=== PATIENT | female | born 1980 | race Caucasian/White ===

== ENCOUNTER 2021-02-15 07:35 | Outpatient (CLI) | payer BC, SELFPAY ==
[2021-02-15 08:36] LABS: Estimated Glomerular Filt Rate > 60
== END 2021-02-15 07:36 | disposition home or self-care (01) ==
LOC: ANHIMG 07:39
PROVIDERS: PCP Internal Medicine; Visit Provider Obstetrics & Gynecology
DX: R19.00 Intra-abdominal and pelvic swelling, mass and lump, unspecified site (principal)
CPT/HCPCS: 99199; 36415

== ENCOUNTER 2021-03-02 14:57 | Outpatient (CLI) | payer BC, SELFPAY ==
--- NOTE | ~2021-03-02 | MM_ITS ---
EXAMINATION: MM screening eddie BI w kristopher HISTORY: . TECHNIQUE: Craniocaudal and mediolateral oblique 3-D tomosynthesis images were obtained and synthetic 2-D images were generated. CAD analysis was submitted and interpreted. COMPARISON: No prior mammogram is available for comparison at this institution. BREAST PARENCHYMAL COMPOSITION: The breasts are almost entirely fatty. FINDINGS: There is no evidence of suspicious mass, calcification, or architectural distortion to sugg est malignancy in either breast. There has been no suspicious interval change. IMPRESSION: 1. No mammographic evidence of malignancy. 2. Recommend routine screening mammography in one year. BI-RADS Category 1: Negative Reviewed, dictated and finalized at location A.
== END 2021-03-02 14:58 | disposition home or self-care (01) ==
LOC: ANHIMG 14:59
PROVIDERS: PCP Internal Medicine; Visit Provider Obstetrics & Gynecology
DX: Z12.31 Encounter for screening mammogram for malignant neoplasm of breast (principal)
CPT/HCPCS: 77063; 77067

== ENCOUNTER 2022-07-13 07:27 | Outpatient (CLI) | payer BC, SELFPAY ==
--- NOTE | ~2022-07-13 | MM_ITS ---
EXAMINATION: MM screening [facility] BI w kristopher HISTORY: Screening mammogram TECHNIQUE: Craniocaudal and mediolateral oblique 3-D tomosynthesis images were obtained and synthetic 2-D images were generated. CAD analysis was submitted and interpreted. COMPARISON: 03/02/2021 BREAST PARENCHYMAL COMPOSITION: There are scattered areas of fibroglandular density. FINDINGS: RIGHT BREAST: There is no suspicious mass, calcification, or architectural distortion to suggest adam gnancy. There has been no significant interval change. LEFT BREAST: An asymmetry is present in the middle third of the upper breast approximately 9 cm from the nipple on the craniocaudal. There is also a subareolar asymmetry on the craniocaudal view. IMPRESSION: 1. Left breast asymmetries. 2. Additional mammographic views and possible breast ultrasound are recommended. BI-RADS Category 0: Incomplete: Needs additional imaging evaluation. Reviewed, dictated and finalized at location A. IMPRESSION: 1. Left breast asymmetries. 2. Additional mammographic views and possible breast ultrasound are recommended . BI-RADS Category 0: Incomplete: Needs additional imaging evaluation.
== END 2022-07-13 07:28 | disposition home or self-care (01) ==
PROVIDERS: PCP Internal Medicine; Visit Provider Obstetrics & Gynecology
DX: Z12.31 Encounter for screening mammogram for malignant neoplasm of breast (principal); R92.8 Other abnormal and inconclusive findings on diagnostic imaging of breast
CPT/HCPCS: 77063; 77067

== ENCOUNTER 2022-07-22 11:21 | Outpatient (CLI) | payer BC, SELFPAY ==
--- NOTE | ~2022-07-22 | MM_ITS ---
EXAMINATION: MM diagnostic eddie LT w kristopher HISTORY: Follow-up left breast asymmetries TECHNIQUE: Additional 3-D tomosynthesis images of the left breast were performed and synthetic 2-D im ages were generated. CAD analysis was submitted and interpreted. COMPARISON: Comparison to multiple prior studies sequentially, with oldest reviewed study dated 03/02. BREAST PARENCHYMAL COMPOSITION: Breast composed of scattered areas of fibroglandular density FINDINGS: There are no suspicious masses, calcifications or architectural distortion in the left chato st to suggest malignancy. Areas of asymmetry are less apparent with spot compression views, compatibl e with superimposed fibroglandular tissue. IMPRESSION: 1. No mammographic evidence for malignancy in the left breast. 2. Routine yearly screening mammogram and regular clinical breast examination are recommended. BI-RADS Category 1: Negative Reviewed, dictated and finalized at location A. IMPRESSION: 1. No mammographic evidence for malignancy in the left breast. 2. Routine yearly screening mammogram and regular clinical breast examination a re recommended. BI-RADS Category 1: Negative
== END 2022-07-22 11:22 | disposition home or self-care (01) ==
LOC: ANHIMG 11:23
PROVIDERS: PCP Internal Medicine; Visit Provider Obstetrics & Gynecology
DX: R92.8 Other abnormal and inconclusive findings on diagnostic imaging of breast (principal)
CPT/HCPCS: 77061; 77065; G0279

== ENCOUNTER 2022-11-15 09:55 | Outpatient (CLI) | payer BC, SELFPAY ==
--- NOTE | ~2022-11-15 | US_ITS ---
Pelvic ultrasound. Clinical History: Hypertrophy of uterus Technique: Realtime transabdominal and transvaginal scanning of the pelvis was performed. Color flow Doppler and Doppler spectral analysis were performed. Findings: The uterus is anteverted. There is a dominant fibroid towards the fundus measuring 11.1 x 9 .2 x 12.9 cm. The endometrial stripe is obscured due to the large fibroid present. Neither ovary seen. No other adnexal mass seen. There is no evidence of free fluid in the cul de sac. Impression: Dominant fundal fibroid measuring 11.1 x 9.2 x 12.9 cm. Reviewed, dictated and finalized at location . E WASHER Impression: Dominant fundal fibroid measuring 11.1 x 9.2 x 12.9 cm.
== END 2022-11-15 09:56 | disposition home or self-care (01) ==
PROVIDERS: PCP Internal Medicine; Visit Provider Obstetrics & Gynecology
DX: N85.2 Hypertrophy of uterus (principal); D25.9 Leiomyoma of uterus, unspecified
CPT/HCPCS: 76830; 76856

== ENCOUNTER 2023-04-09 12:45 | Emergency (ER) | payer BC, SELFPAY ==
[2023-04-09 12:55] VITALS: BP 144/80; PULSE 72; RESP 16; TEMP 37.7; O2SAT 98
--- NOTE | 2023-04-09 13:08 | ED.URI ---
HPI - URI/Sore Throat General Chief Complaint: Upper Respiratory Infection Stated Complaint: throat problem Time Seen by Provider: 04/09/23 13:08 Source: patient Mode of arrival: ambulatory Limitations: no limitations History of Present Illness HPI Narrative: 43-year-old female presents with complaint of sinus congestion, pressure, postnasal drainage, hoarse voice, ear pressure, headaches, fatigue for the past week. Afebrile. Taking Zyrtec daily. Has tried several amqd-lgm-thzpzde medications to treat sinuses without relief of symptoms. Reports hoarseness when coughing. Denies chest pain and shortness of breath. No nausea vomiting diarrhea. All systems reviewed and negative except as noted above. Related Data Home Medications Medication Instructions Recorded Confirmed cetirizine 10 mg capsule (Zyrtec) 10 mg PO DAILY 01/29/21 04/09/23 cholecalciferol (vitamin D3) 50 150 mcg PO DAILY 01/29/21 04/09/23 mcg (2,000 unit) capsule magnesium citrate 125 mg capsule 125 mg PO BID 01/29/21 04/09/23 Allergies Allergy/AdvReac Type Severity Reaction Status Date / Time codeine Allergy Unknown Unknown Verified 04/09/23 13:00 latex Allergy Unknown unknown Verified 04/09/23 13:00 Penicillins Allergy Unknown Unknown Verified 04/09/23 13:00 Review of Systems Review of Systems: CONSTITUTIONAL: Denies fever, chills, or sweats. EYES: Denies visual changes, redness, or discharge. ENT: Reports rhinorrhea, congestion, sore throat, postnasal drainage, sinus and ear pressure. CARDIOVASCULAR: Denies chest pain, palpitations, or edema. RESPIRATORY: Reports cough. Denies dyspnea. GASTROINTESTINAL: Denies abdominal pain, nausea, vomiting, or diarrhea. GENITOURINARY: Denies dysuria or hematuria. SKIN: Denies rash or itching. MUSCULOSKELETAL: Denies back pain, joint pain, or myalgia. NEUROLOGIC: Denies headache, numbness, or weakness. PSYCHIATRIC: Denies anxiety or depression. All other systems reviewed are negative, except as documented in HPI. [facility] Past Medical History Medical History x1 Acid reflux Surgical History Surgical History History of cholecystectomy History of surgery of uterus fibroid embolism Family History Family History Grandparent Family history of malignant neoplasm of cervix Social History Social History Smoking status: Current every day smoker Tobacco type: cigarettes Alcohol intake: current Substance use: unknown Comments At time of signature, agree with nursing past medical, surgical, social and family history. There is no relevant family history pertinent to the presenting complaint. Exam Narrative: GENERAL: This is a well-nourished, well-developed patient, in no apparent distress. HEAD: normocephalic, atraumatic. EYES: PERRL. Sclera clear/white. Vision is grossly intact. EARS: External ears normal, auditory canals clear and without drainage, Fluid to bilateral TMs without erythema. NOSE: External nose normal with purulent nasal drainage, erythema and swelling to both nares. Bilateral maxillary and sinus tenderness on palpation. THROAT: Mucous membranes moist, Erythema and swelling to posterior pharynx with postnasal drainage. NECK: Neck supple, non-tender without lymphadenopathy, masses or thyromegaly. CARDIOVASCULAR: Regular rate and rhythm without murmurs, gallops, or rubs. RESPIRATORY: Clear to auscultation. Breath sounds equal bilaterally. No wheezes, rales, or rhonchi. SKIN: warm, Dry, intact with no suspicious lesions or rash, good texture and turgor. NEURO: awake, alert, and oriented to person, place and time. There were no obvious focal neurologic abnormalities. EXTREMITIES: No joint tenderness, effusion, or edema noted. Cours
== END 2023-04-09 13:21 | disposition home or self-care (01) ==
PROVIDERS: Emergency Provider Nurse Practitioner Family
DX: J01.90 Acute sinusitis, unspecified (principal); K21.9 Gastro-esophageal reflux disease without esophagitis; F17.210 Nicotine dependence, cigarettes, uncomplicated
CPT/HCPCS: 99213; G0463

== ENCOUNTER → 2023-04-18 08:09 | Outpatient (CLI) | payer BC, SELFPAY ==
--- NOTE | ~2023-04-18 | US_ITS ---
EXAMINATION: US pelvic complete w TV DATE: 04/18/2023 08:47 INDICATION: Leiomyoma of uterus TECHNIQUE: Multiple transabdominal and endovaginal sonographic images of the pelvis were obtained. COMPARISON: 11/15/2022, 11/17/2018 FINDINGS: The uterus measures 11.7 x 5.5 x 6.6 cm. There is an approximately 10.3 x 9.1 x 6.1 cm mass situated posterior to the uterus with the appearance of a large fibroid. The endometrial complex nat sures 7 mm. The left ovary is not visualized however no left adnexal abnormality is seen. The right o vary measures 2.9 x 4.5 x 6.1 cm and contains cysts measuring up to 3.1 cm. There is normal vascular flow in the right ovary. There is no free fluid in the pelvis. IMPRESSION: 1. Pelvic mass without significant change, likely large uterine fibroid. Reviewed, dictated and finalized at location B.
== END ==
PROVIDERS: PCP Obstetrics & Gynecology; Visit Provider Obstetrics & Gynecology
DX: D25.9 Leiomyoma of uterus, unspecified (principal)
CPT/HCPCS: 76830; 76856

== ENCOUNTER 2025-03-06 13:01 | Outpatient (CLI) | payer BC, SELFPAY ==
--- NOTE | ~2025-03-06 | XR_ITS ---
EXAMINATION: SCOLIOSIS DATE: 03/07/2025 9:59 CDT INDICATION: Segmental and somatic dysfunction of the thoracic and lumbar spine TECHNIQUE: Standing AP and lateral views of the thoracolumbar spine FINDINGS: There are 12 rib bearing thoracic vertebral bodies and 5 non-rib bearing lumbar type verteb ral bodies. There is no listhesis, compression deformity or vertebral body anomalies. There is mild S shaped scoliosis of the thoracic and lumbar spine. There is dextrocurvature of the lower thoracic spine centered at T12 measuring 6 degrees. There is levoscoliosis of the lumbar spine centered at L2- 3 measuring 8 degrees. There are cholecystectomy clips. There is reversal of cervical lordosis, possi yung due to muscle spasm. IMPRESSION: 1. Mild S-shaped scoliosis of the thoracic and lumbar spine. 2. No vertebral body anomalies. Reviewed, dictated and finalized at location A.
== END 2025-03-06 13:02 | disposition home or self-care (01) ==
DX: M51.34 Other intervertebral disc degeneration, thoracic region (principal); M51.360 Other intervertebral disc degeneration, lumbar region with discogenic back pain only; M99.02 Segmental and somatic dysfunction of thoracic region; M99.03 Segmental and somatic dysfunction of lumbar region; M99.01 Segmental and somatic dysfunction of cervical region; M50.30 Other cervical disc degeneration, unspecified cervical region
CPT/HCPCS: 72082

== ENCOUNTER 2025-03-27 01:09 | Day surgery (SDC) | payer BC, SELFPAY ==
[2025-01-01 10:58] VITALS: BMI 40.1
[2025-03-13 11:24] VITALS: BMI 41.6
--- OUTSIDE RECORDS SUMMARY | 2025-03-27 01:18 | XMS_ITS | Referral Summary ---
Author Organization [facility] Address [address] [place] [address] Care Team Providers Care Welding Supervisor Name Role Phone Margie Kruse DNP Primary Care Provi christina Encounters Date Type Department Care Team Description 01/20/2025 Results Follow-Up [address] [place] [id number] Margie Kruse DNP Throat culture Throat 01/18/[address] [place] [id number] Margie Kruse DNP disability paperwork 01/14/2025 4:24 PM CDT - 01/14/2025 11:59 PM CDT Hospital Encounter [facility] [place] [address] Pharyngeal abscess Discharge Disposition: Discharge to home or self care 01/14/2025 3:00 PM CDT Office Visit [address] [place] [address] Margie Kruse DNP Pharyngeal abscess (Primary Dx); Acute sinusitis, recurrence not specified, unspecified location; Bronchitis; Environmental and seasonal allergies; Morbid obesity with BMI of 45.0-49.9, adult (HCC) 01/14/[address] [place] [address] Aixa, Margie Aletha, DNP Appointment Request from Last 3 Months Allergies Active Allergy Reactions Criticality Noted Date Comments Codeine Codeine Vomiting Medium 03/19/2021 Latex Itching,Rash Medium 03/19/2021 Levofloxacin Hives,Itching,Rash,Redness Medium 023 Penicillins Penicillins Vomiting Medium 03/19/2021 Medications semaglutide (OZEMPIC SUBQ) Inject under the skin Active vitamin D3-vitamin K2 25 mcg (1,000 unit)-90 mcg tablet,disinteg rating Take by mouth Active albuterol HFA (PROVENTIL HFA,VENTOLIN HFA,PROAIR HFA) 90 mcg/actuation inhaler TAKE 2 APPLICATION (INHALATION) EVERY 4 HOURS FOR 15 DAYS 5 Active benzonatate (TESSALON) 200 mg capsule TAKE 1 CAPSULE BY MOUTH THREE TIMES A DAY FOR 10 DAYS 5 Active doxycycline hyclate 100 mg capsule TAKE 1 CAPSULE BY MOUTH TWICE A DAY FOR 10 DAYS 5 Active predniSONE (DELTASONE) 20 mg tablet TAKE 3 TABLETS BY MOUTH ONCE DAILY FOR 3 DAYS, 2 TABS DAILY FOR 2 DAYS, 1 TAB DAILY FOR 2 DAYS 5 Active montelukast (SINGULAIR) 10 mg tablet Take 1 tablet (10 mg total) by mouth nightly 90 tablet 1 5 01/15/20 26 Active cetirizine (ZyrTEC) 10 mg tablet Take 1 tablet (10 mg total) by mouth daily as needed for rhinitis 90 tablet 3 5 01/15/20 26 Active fluticasone propionate (FLONASE) 50 mcg/actuation nasal spray Administer 2 sprays into each nostril daily 3 each 3 5 Active Active Problems Problem Noted Date Diagnosed Date Pharyngeal abscess 01/14/2025 Assessment & Plan (01/14/2025 3:57 PM CDT): Throat culture collected Refer to ENT Bronchitis 01/14/2025 Assessment & Plan (01/14/2025 3:57 PM CDT): Continue current therapy regimen Sinusitis, acute 01/14/2025 Assessment & Plan (01/14/2025 3:57 PM CDT): Continue current therapy regimen Take pseudoephedrine 240 mg daily for 10 days as prescribed Start montelukast 10 mg daily as prescribed Start cetirizine 10 mg daily as prescribed Use Flonase daily as prescribed Follow up as needed Environmental and seasonal allergies 01/14/2025 Assessment & Plan (01/14/2025 3:59 PM CDT): Start montelukast 10 mg daily as prescribed Start cetirizine 10 mg daily as prescribed Use Flonase daily as prescribed Follow up in one-month Morbid obesity with BMI of 45.0-49.9, adult 04/2025 Assessment & Plan (01/14/2025 3:57 PM CDT): Your BMI is elevated. Try to cut back on calories. Most people should eat between 9182-5370 calories to lose weight. Goal BMI is less than 30. A healthy BMI is considered between 19-25. Decrease your carbohydrate intake to less than 150 grams per day if possible and increase protein to help with hunger. Increase activity to 30 min 4-5 days a week of moderate aerobic activity and add strength training 2 times weekly, as tolerated. Consider using [employer] keaton to track diet and exercise habits daily. Consider trying Weight Watcher program to make dietary changes. Visit www.dietaryguidelines.gov, www.myplate.gov, or www.health.gov for more dietary information and tips. Visit www.[employer] or www.[employer] for online seo manager covered by health insurance. If you need further help with weight loss please let me know. I would be happy to help. Start with asking your insurance company what medications they provide coverage for. Check with your insurance to see if they authorize dietitian services with www.[employer] Some medications to ask about include phentermine, Qsymia, Contrave, Xenical, Wegovy, Zepbound. Annual physical exam 06/18/2024 Assessment & Plan (06/18/2024 2:55 PM CDT): Labs ordered Recommend drinking at least 64 oz of water daily Recommend at least 26g fiber daily Recommend at least 150 min of exercise weekly as tolerated Recommend taking daily multivitamin Continue eating a healthy well-balanced diet. Limit processed foods like white starches, fast food, sweets and soda. Increase your vegetable intake and limit red meat. Wear your seatbelt at all times. No texting and driving. Continue to manage your stress in a healthy manner. Follow-up 1 year for annual physical. Fibroids 04/29/2021 Class 2 obesity with body ma ss index (BMI) of 39.0 to 39.9 in adult 01/18/2017 Overview (06/10/2023): Last Assessment & Plan: Has been having success with weight loss. We spent 15 mins discussing healthy dietary and lifestyle changes. Discussed keeping weight loss slow and steady and making overall healthy changes and decisions. Encouraged to con't diet and to increase her physical exercises Assessment & Plan (06/18/2024 2:58 PM CDT): Continue with semaglutide as managed by [facility] Most people should eat between 9184-5925 calories to lose weight. Goal BMI is less than 30. A healthy BMI is considered between 19-25. Decrease your carbohydrate intake to less than 150 grams per day if possible and increase protein to help with hunger. Increase activity to 30 min 4-5 days a week of moderate aerobic activity and add strength training 2 times weekly, as tolerated. Consider using [employer] keaton to track diet and exercise habits daily. Consider trying Weight Watcher program to make dietary changes. Visit www.dietaryguidelines.gov, www.myplate.gov, or www.health.gov for more dietary information and tips. Immunizations Immunization Administration Dates Next Due Influenza, Quadrivalent, Spl it, Preservative Free, Intramuscular 08/29/2017 Influenza, Unspecified 07/10/2023(Deferred: Syeda ent Refused) Tdap 08/29/2017 Social History Tobacco Use Types Packs/Day Years Used Date Smoking Tobacco: Some Days Cigarettes Smokeless Tobacco: Never Tobacco Cessation:Ready to Q uit: Not Asked; Counseling Given: Not Answered Alcohol Use Standard Drinks/Week Comments Yes 0 (1 standard drink = 0.6 oz pur e alcohol) once every few months AUDIT-C Answer Date Recorded Q1: How often do you have a drink containing alc ohol? 2-4 times a month 06/18/2024 Q2: How many drinks containi ng alcohol do you have on a typical day when you are drinking? 1 or 2 06/18/2024 Q3: How often do you have si x or more drinks on one occasion? Never 06/18/2024 PHQ-2 Answer Date Recorded PHQ-2 Total Score (If total score is 3 or more points, staff should administer the PHQ-9) 0 06/18/2024 Personal Safety Answer Date Recorded Have you ever been in or are you currently in a harmful physical or emotional relationship or is someone making you feel afraid or unsafe? 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 Gender Identity Not on file Sexual Orientation Not on file Last Filed Vital Signs Vital Sign Reading Time Taken Comments Blood Pressure 118/70 01/14/2025 2:57 PM CDT Pulse 80 01/14/2025 2:57 PM CDT Temperature 36.6 C (97.9 F) 06/18/2024 2:11 PM CDT Respiratory Rate 18 01/14/2025 2:57 PM CDT Oxygen Saturation 98% 01/14/2025 2:57 PM CDT Inhaled Oxygen Concentration - - Weight 139.5 kg (307 lb 9.6 oz) 01/14/2025 2:57 PM CDT Height 175.3 cm (5' 9) 01/14/2025 2:57 PM CDT Body Mass Index 45.42 01/14/2025 2:57 PM CDT Plan of Treatment Not on file Medical Devices Implanted Type Area Automotive Paint Technician Device Identifier Shelf Expiration Date Model / Serial / Lot [employer] S620 Embosphere Saline Syringe Compressible Nonaggregate Highly Target - [id number] Implanted:Qty: 1 on 04/29/2021 at [facility] [employer] 10/03/2023 S620GH / / [id number] [employer] S620 Embosphere Saline Syringe Compressible Nonaggregate Highly Target - [id number] Implanted:Qty: 1 on 04/29/2021 at [facility] [employer] 10/03/2023 S620GH / / [id number] [facility] [employer] S620 Embosphere Saline Syringe Compressible Nonaggregate Highly Target - [id number] Implanted:Qty: 1 on 04/29/2021 at [facility] [employer] 10/03/2023 S620GH / / [id number] [facility] [employer] S620gh Embosphere Saline Syringe Compressible Nonaggregate High[employer] - [id number] Implanted:Qty: 1 on 04/29/2021 at [facility] [employer] 08/09/2023 S620GH / / [id number] [facility] [employer] S620 Embosphere Saline Syringe Compressible Nonaggregate High[employer] Target - [id number] Implanted:Qty: 1 on 04/29/2021 at [facility] [employer] 12/07/2022 S620GH / / [id number] [facility] [employer] S620 Embosphere Saline Syringe Compressible Nonaggregate High[employer] - [id number] Implanted:Qty: 1 on 04/29/2021 at [facility] [employer] 12/07/2022 S620GH / / [id number] [facility] [employer] S620 Embosphere Saline Syringe Compressible Nonaggregate High[employer] - [id number] Implanted:Qty: 1 on 04/29/2021 at [facility] [employer] 10/03/2023 S620GH / / [id number] [facility] [employer] S620gh Embosphere Saline Syringe Compressible Nonaggregate High[employer] Target - [id number] Implanted:Qty: 1 on 04/29/2021 at [facility] [employer] 06/09/2023 S620GH / / [id number] Procedures Procedure Name Priority Date/Time Associated Diagnosis Comments THROAT CULTURE Routine 01/14/2025 3:18 PM CDT Pharyngeal abscess from Last 3 Months Results * Throat culture Throat (01/14/2025 3:18 PM CDT) Report Final Report: No growth of pathogens. Comment:Testing performed by : [facility] [address] [facility], [place]., [address] Throat 01/14/2025 3:18 PM CDT 01/14/2025 9:42 PM CDT Yanelis RM - 01/15/2025 5:35 PM CDT Testing performed by [facility] ([phone]). Margie Kruse [facility] MI[facility] - GENERAL ORDERABLES Final Result [facility] [address] [facility] [place] [address] from Last 3 Months Insurance [employer] [place] [employer] [address] Advance Directives For more information, please contact: [phone] * Full Code (Latest Code Status on File) Date Activated Date Inactivated Comments 07/20/2023 7:05 AM 07/21/2023 4:53 AM * Full Code Date Activated Date Inactivated Comments 04/29/2021 1:03 PM 10/14/2021 4:41 AM Care Teams Welding Supervisor Relationship Specialty Start Date End Date Margie Kruse DNP [address] [place] [address] PCP - General Family Medicine 06/20/24
--- OUTSIDE RECORDS SUMMARY | 2025-03-27 01:18 | XMS_ITS | Encounter Summary ---
Author Organization [facility] Healthcare Address [address] [place] [address] Care Team Providers Care Farm Hand Name Role Phone America Bishop MD Primary Care Provider [phone] Margie Kruse DNP Primary Care Provi christina Encounter Details Date Type Department Care Team (Late st Contact Info) Description 04/29/2021 Telephone [facility] - Interventional Radiology [facility] [place] [address] Naheed Russo RN Social History Tobacco Use Types Packs/Day Years Used Date Smoking Tobacco: Never Assessed Comments Unknown Sex and Gender Information Value Date Recorded Sex Assigned at Not on file 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
--- OUTSIDE RECORDS SUMMARY | 2025-03-27 01:18 | XMS_ITS | Clinical Summary ---
Author Organization [facility] Address [address] [place] [address] Care Team Providers Care Business Administrator Name Role Phone Margie Kruse [facility] Primary Care Provi christina Allergies Active Allergy Reactions Criticality Noted Date [...] on calories. Most people should eat between 0772-4535 calories to lose weight. Goal BMI is less than 30. A healthy BMI is considered between 19-25. Decrease your carbohydrate intake to less than 150 grams per day if possible and increase protein to help with hunger. Increase activity to 30 min 4-5 days a week of moderate aerobic activity and add strength training 2 times weekly, as tolerated. Consider using Zoomorama keaton to track diet and exercise habits daily. Consider trying Weight Watcher program to make dietary changes. Visit www.dietaryguidelines.gov, www.Devign Labplate.gov, or www.health.gov for more dietary information and tips. Visit www.[employer] or www.[employer] for online planning analyst covered by health insurance. If you need further help with weight loss please let me know. I would be happy to help. Start with asking your insurance company what medications they provide coverage for. Check with your insurance to see if they authorize dietitian services with www.[employer] Some medications to ask about include phentermine, [...] Weight Loss Most people should eat between 8098-5098 calories to lose weight. Goal BMI is less than 30. A healthy BMI is considered between 19-25. Decrease your carbohydrate intake to less than 150 grams per day if possible and increase protein to help with hunger. Increase activity to 30 min 4-5 days a week of moderate aerobic activity and add strength training 2 times weekly, as tolerated. Consider using Zoomorama keaton to track diet and exercise habits daily. Consider trying Weight Watcher program to make dietary changes. Visit www.dietaryguidelines.gov, www.myplate.gov, or www.health.gov for more dietary information and tips. Encounters Date Type Department Care Team Description 01/20/2025 Results Follow-Up [address] [place] [address] Margie Kruse DNP Throat culture Throat 01/18/[address] [place] [phone] Margie Kruse DNP disability paperwork 01/14/2025 4:24 PM CDT - 01/14/2025 11:59 PM CDT Hospital Encounter [facility] [address] [place] [address] Pharyngeal abscess Discharge Disposition: Discharge to home or self care 01/14/2025 3:00 PM CDT Office Visit [address] [place] [address] Margie Kruse DNP Pharyngeal abscess (Primary Dx); Acute sinusitis, recurrence not specified, unspecified location; Bronchitis; Environmental and seasonal allergies; Morbid obesity with BMI of 45.0-49.9, adult (HCC) 01/14/[address] [place] [phone] Margie Kruse DNP Appointment Request from Last 3 Months Immunizations Immunization Administration Dates Next Due Influenza, Quadrivalent, Spl it, Preservative Free, Intramuscular 08/29/2017 Influenza, Unspecified 07/10/2023(Deferred: Syeda ent Refused) Tdap 08/29/2017 Surgical History Surgery Date Site/Laterality Comments EMBOLIZATION ORGAN ISCHEMIA OR INFARCTION 04/29/2021 N/A UFE CHOLECYSTECTOMY 10/10/2016 - 10/09/2017 Medical History Medical History Date Comments History of heavy periods Fibroids Family History Medical History Relation Name Comments Cataracts Father Lianet's thyroiditis Mother Thyroid disease Mother Relation Name Status Comments Father Alive Mother Alive Social History Tobacco Use Types Packs/Day Years [...] on file 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 Gender Identity Not on file Sexual Orientation Not on file Obstetrics History Last Filed Vital Signs Vital Sign Reading [...] 01/14/2025 2:57 PM CDT Plan of Treatment Health Maintenance Due Date Last Done Comments Breast Cancer Screening-Mammogram 1979 Cervical Cancer Screening 1979 Colon Cancer Screening-Colonoscopy 1979 Hepatitis C Screening 1979 Hepatitis B Screening 1997 Pneumococcal vaccine <65 (1 of 2 - PCV) 1998 Influenza Vaccine (Season Ended) 2025 08/29/20 Depression Screening 06/18/2025 06/18/2024 Regular Well Visit/Exam 18-64 06/18/2025 06/18/2024 DTaP/Tdap/Td Vaccine (2 - Td or Tdap) 08/29/2027 08/29/2017 HPV Vaccines Aged Out No longer eligi ble based on patient's age to complete this topic Medical Devices Implanted Type Area Steel Grinder Device Identifier Shelf Expiration Date Model / Serial / Lot [email or web address] S620 Embosphere Saline Syringe Compressible Nonaggregate Highly Target - [id number] Implanted:Qty: 1 on 04/29/2021 at [facility] [employer] 10/03/2023 S620 / / [id number] [facility] [employer] S620 Embosphere Saline Syringe Compressible Nonaggregate Highly Target - [id number] Implanted:Qty: 1 on 04/29/2021 at [facility] [employer] 10/03/2023 S620 / / [id number] [facility] [employer] S620 Embosphere Saline Syringe Compressible Nonaggregate Highly Target - [id number] Implanted:Qty: 1 on 04/29/2021 at [facility] [employer] 10/03/2023 S620GH / / [id number] [facility] [employer] S620 Embosphere Saline Syringe Compressible Nonaggregate Highly Target - [id number] Implanted:Qty: 1 on 04/29/2021 at [facility] [email or web address] 08/09/2023 S620 / / [id number] [email or web address] S620 Embosphere Saline Syringe Compressible Nonaggregate Highly Target - [id number] Implanted:Qty: 1 on 04/29/2021 at [facility] [employer] 12/07/2022 S620 / / [id number] [email or web address] S620 Embosphere Saline Syringe Compressible Nonaggregate Highly Target - [id number] Implanted:Qty: 1 on 04/29/2021 at [facility] 12/07/2022 S620GH / / [id number] [facility] Systems S620 Embosphere Saline Syringe Compressible Nonaggregate Highly Target - [id number] Implanted:Qty: 1 on 04/29/2021 at [facility] [employer] 10/03/2023 S620GH / / [id number] [facility] S620gh Embosphere Saline Syringe Compressible Nonaggregate Highly Target - [id number] Implanted:Qty: 1 on 04/29/2021 at [facility] [employer] 06/09/2023 [id number] / / [id number] Procedures Procedure Name Priority Date/Time Associated Diagnosis Comments THROAT CULTURE Routine 01/14/2025 3:18 PM CDT Pharyngeal abscess from Last 3 Months Results * Throat culture Throat (01/14/2025 3:18 PM CDT) Report Final Report: No growth of pathogens. Comment:Testing performed by : [facility], [address] [place]., [address] Throat 01/14/2025 3:18 PM CDT 01/14/2025 9:42 PM CDT Narrative N[facility] - 01/15/2025 5:35 PM CDT Testing performed by [facility] Microbiology Laboratory ([phone]). Margie Kruse [facility] MICROBIOLOGY - GENERAL ORDERABLES Final Result [facility] [address] [place] [address] from Last 3 Months Insurance [employer] OOS Member Subscriber Plan / Payer (Ef fective 2020-Present) Name:Vicenta Rey Relation to Subscriber:Self Name:Vicenta Rey Payer ID:[id number] (NAIC) Type:[employer] Address: [address] [place] [address] [employer] OOS Advance Directives For more information, please contact: [phone] * Full Code (Latest Code Status on File) Date Activated Date Inactivated Comments 07/20/2023 7:05 AM 07/21/2023 4:53 AM * Full Code Date Activated Date Inactivated Comments 04/29/2021 1:03 PM 10/14/2021 4:41 AM Care Teams Business Administrator Relationship Specialty Start Date End Date Margie Kruse DNP [address] [facility] [address] [place] [address] PCP - General Family Medicine 06/20/24
--- OUTSIDE RECORDS SUMMARY | 2025-03-27 01:18 | XMS_ITS | Encounter Summary ---
Author Organization [facility] Healthcare Address [address] [place] [address] Care Team Providers Care Community Pharmacist Name Role Phone America Bishop MD Primary Care Provider [phone] Margie Kruse DNP Primary Care Provi christina Encounter Details Date Type Department Care Team (Late st Contact Info) Description 04/28/2021 Telephone [facility] - Interventional Radiology 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 Blood specimen (specimen) 04/29/2021 7:28 AM CDT 04/29/2021 7:32 AM CDT us Jerry Gilman MD LAB BLOOD ORDERABLES Final Result Performing Organization Address [facility] Co de Phone Number [facility] [address] [place] [address] * Protime-INR (04/29/2021 7:28 AM CDT) PT 13.0 9.5 - 13.6 sec [facility] INR 1.2 0.9 - 1.2 [facility] Comment: Interpretive data Oral anticoagulant therapeutic ranges: Venous thromboembolism prophylaxis or treatment: 2.0-3.0 CARDIOLOGY Standard range: 2.0-3.0 High-intensity range: 2.5-3.5 Refer to indication-specific guidelines for appropriate target ranges for prosthetic heart valve replacement. Current interpretive data was last revised on 2019. Blood specimen (specimen) 04/29/2021 7:28 AM CDT 04/29/2021 7:32 AM CDT us Jerry Gilman MD LAB BLOOD ORDERABLES Final Result Performing Organization Address [facility] Co de Phone Number [facility] [address] [place] [address] * (ABNORMAL) CBC with auto differential (04/29/2021 7:28 AM CDT) WBC 8.2 3.8 - 9.9 K/cumm [facility] Hgb 11.8(L) 11.9 - 15.5 g/dL [facility] Hct 38.0 35.6 - 45.5 % [facility] Plt 349 150 - 400 K/cumm [facility] MPV 9.4 9.1 - 12.3 fL [facility] RBC 4.91 3.90 - 5.20 M/cumm [facility] MCV 77.4(L) 81.3 - 96.4 fL [facility] MCH 24.0(L) 27.1 - 33.3 pg [facility] MCHC 31.1(L) 32.3 - 35.7 g/dL [facility] RDW CV 16.3(H) 11.1 - 14.9 % [facility] RDW SD 45.8 35.7 - 48.1 fL [facility] NRBC abs 0.00 0.00 - 0.01 K/cumm [facility] Blood specimen (specimen) 04/29/2021 7:28 AM CDT 04/29/2021 7:33 AM CDT us Jerry Gilman MD LAB BLOOD ORDERABLES Final Result [facility] [address] [place] [address] documented in this encounter Visit Diagnoses Diagnosis Fibroids- Primary Leiomyoma of uterus, unspecified documented in this encounter Care Teams Community Pharmacist Relationship Specialty [place] [id number] [address] PCP - General Internal Medicine 03/19/21 06/19/24 Margie Kruse DNP [address] [facility] [address] [place] [address] [place] [address] PCP - General Family Medicine 06/20/24 documented as of this encounter
[2025-03-27 09:45] VITALS: BP 127/97; PULSE 67; RESP 18; TEMP 35.7; O2SAT 97; BMI 43.2
--- NOTE | 2025-03-27 09:59 | WPDANESEPPF ---
Anes - Initial Pre Proc Eval Procedure: Operation Date: 03/27/25 11:00 Proposed Procedures p Screening Colonoscopy - Max Ascencio MD Date/Time: 03/27/25 09:59 Surgeon: Max Ascencio MD Pre Op Diagnosis: screenin malignant neoplasm of colon Patient Data Age: 45 Gender: F Height: 1.78 m Weight: 131.6 kg Allergies Allergy/AdvReac Type Severity Reaction Status Date / Time codeine Allergy Unknown Unknown Verified 03/27/25 09:52 latex Allergy Unknown unknown Verified 03/27/25 09:52 Penicillins Allergy Unknown Unknown Verified 03/27/25 09:52 Home Medications ?Medication ?Instructions ?Recorded ?Confirmed ?Type cetirizine 10 mg capsule (Zyrtec) 10 mg PO DAILY 01/29/21 03/27/25 History cholecalciferol (vitamin D3) 50 150 mcg PO DAILY 01/29/21 03/27/25 History mcg (2,000 unit) capsule mecobalamin (vitamin B12) 1,000 1,000 mcg PO DAILY 11/14/23 03/27/25 History mcg chewable tablet semaglutide 1 mg/dose (4 mg/3 mL) 1 mg subcut WEEKLY 11/14/23 03/27/25 History subcutaneous pen injector (Ozempic) Patient hx anesthesia problems: none Family hx anesthesia problems: none Results Review: All pre-operative results and documents have been reviewed as part of the pre-operative evaluation. PMFSH Past Medical History Medical History x1 Acid reflux Surgical History Surgical History History of cholecystectomy History of surgery of uterus fibroid embolism Family History Family History Grandparent Family history of malignant neoplasm of cervix Social History Social History (Updated 11/14/23 @ 12:01 by Margie Kruse, DESIGN ENGINEERING TECHNICIAN) Years smoked: 10 Smoking status: Current every day smoker Tobacco type: cigarettes Smoking end date: 07/24/23 Alcohol intake: current Substance use: unknown Substance use type: does not use Do You Feel Safe in your Home?: Yes Lack of Transportation: No Lack of Food: Never True Current Housing: I Have Housing Concerned About Future Housing: No Difficulty Paying Gas/Electric Bills: No Difficulty Paying for Meds: No Currently Unemployed: No Education: Associate Degree Difficulty w/ Childcare or Family Care: No Living arrangements: with family Spiritual care concerns: No Anes - Eval Final PreProcedure Day of Procedure 03/27/25 09:59 Patient weight: morbidly obese Heart: regular rate and rhythm Lungs: clear to auscultation Airway: Mallampati scale class II Neurological: alert and oriented Last oral intake: >/= 8 hours ASA classification: III Emergent: no Anesthetic plan: proceed Anesthesia type and monitoring: general GIVS and standard monitoring Results Review: All pre-operative results and documents have been reviewed as part of the pre-operative evaluation. Informed Consent: The patient's anesthetic plan and its attendant risks and benefits were discussed with the patient/family/POA. Questions were solicited and answers provided to the satisfaction of the patient/family/POA.
[2025-03-27] MEDS: LACTATED RINGERS 1,000 ML 150 ML IV CONT (10:11)
--- NOTE | 2025-03-27 10:20 | PM.HPGS ---
History of Present Illness History of Present Illness Consent: Risks, benefits, and alternatives have been discussed and questions answered. Patient agrees to proceed with procedure. Chief complaint: screenin malignant neoplasm of colon Narrative: Vicenta Rey is a 45 year old female her for first screening colonoscopy Review of Systems Review of Systems: All systems reviewed & are unremarkable except as noted in HPI and below PMFSH Past Medical History Medical History (Updated 03/27/25 @ 10:22 by Max Ascencio MD) Colon cancer screening x1 Acid reflux Surgical History Surgical History History of surgery of uterus fibroid embolism History of cholecystectomy Family History Family History Grandparent Family history of malignant neoplasm of cervix Social History Social History (Updated 11/14/23 @ 12:01 by Margie Kruse, ALTERATION INSPECTOR) Years smoked: 10 Smoking status: Current every day smoker Tobacco type: cigarettes Smoking end date: 07/24/23 Alcohol intake: current Substance use: unknown Substance use type: does not use Do You Feel Safe in your Home?: Yes Lack of Transportation: No Lack of Food: Never True Current Housing: I Have Housing Concerned About Future Housing: No Difficulty Paying Gas/Electric Bills: No Difficulty Paying for Meds: No Currently Unemployed: No Education: Associate Degree Difficulty w/ Childcare or Family Care: No Living arrangements: with family Spiritual care concerns: No Meds Home Medications and Allergies Home Medications ?Medication ?Instructions ?Recorded ?Confirmed ?Type cetirizine 10 mg capsule (Zyrtec) 10 mg PO DAILY 01/29/21 03/27/25 History cholecalciferol (vitamin D3) 50 150 mcg PO DAILY 01/29/21 03/27/25 History mcg (2,000 unit) capsule mecobalamin (vitamin B12) 1,000 1,000 mcg PO DAILY 11/14/23 03/27/25 History mcg chewable tablet semaglutide 1 mg/dose (4 mg/3 mL) 1 mg subcut WEEKLY 11/14/23 03/27/25 History subcutaneous pen injector (Ozempic) Allergies Allergy/AdvReac Type Severity Reaction Status Date / Time codeine Allergy Unknown Unknown Verified 03/27/25 09:52 latex Allergy Unknown unknown Verified 03/27/25 09:52 Penicillins Allergy Unknown Unknown Verified 03/27/25 09:52 Vital Signs Vital Signs - 24 hr 03/27/25 09:45 Temperature 96.3 F L Pulse Rate 67 Respiratory Rate 18 Blood Pressure 127/97 H Pulse Oximetry 97 Oxygen Delivery Room Air Exam Const: General: comfortable and no acute distress HENMT: Face/Nose/Sinus: Normal nares present Eyes: General: appearance normal, both eyes and all related structures Neck: Neck: no JVD Resp: Auscultation: clear to auscultation bilaterally Cardio: Rate: regular rate Rhythm: regular rhythm GI: Inspection: non-distended GI Palp: Yes Soft to palpation Skin: General skin exam: normal color Neuro: General: gait normal Speech: normal speech Extrem: General: normal to inspection Psych: Mental Status: mental status grossly normal Assessment and Plan Assessment and plan (1) Colon cancer screening: Code(s): Z12.11 - Encounter for screening for malignant neoplasm of colon Status: Acute Assessment and Plan: colonoscopy
[2025-03-27 10:38] LABS: BEDSIDEPREGUCG Negative (Negative)
[2025-03-27 10:39] VITALS: BP 114/57; PULSE 67; RESP 13; O2SAT 98
[2025-03-27 10:49] VITALS: BP 120/97; PULSE 62; RESP 16; O2SAT 97
[2025-03-27 10:59] VITALS: BP 112/66; PULSE 73; RESP 18; O2SAT 97
== END 2025-03-27 11:03 | disposition home or self-care (01) ==
PROVIDERS: Referring Provider Registered Nurse; Visit Provider Internal Medicine Gastroenterology
PROC: 0DJD8ZZ Inspection of Lower Intestinal Tract, Via Natural or Artificial Opening Endoscopic (ICD-10-PCS; CPT 45378; principal; 2025-03-27 11:00)
DX: Z12.11 Encounter for screening for malignant neoplasm of colon (principal); K63.5 Polyp of colon; K64.8 Other hemorrhoids; F17.210 Nicotine dependence, cigarettes, uncomplicated; E66.01 Morbid (severe) obesity due to excess calories; Z68.41 Body mass index [BMI] 40.0-44.9, adult; Z79.85 Long-term (current) use of injectable non-insulin antidiabetic drugs; Z98.890 Other specified postprocedural states; Z90.49 Acquired absence of other specified parts of digestive tract; Z80.49 Family history of malignant neoplasm of other genital organs
CPT/HCPCS: 45385; J2003; J2704; J7120